=== PATIENT | female | born 1995 | race African-American/Black ===

== ENCOUNTER 2017-03-11 00:29 | Emergency (ER) | payer MEDICAID, OTHER ==
[~2017-03-11] VITALS: Ht 167.6 cm; Wt 81.0 kg
[2017-03-11 00:30] VITALS: BP 152/92; PULSE 102; RESP 20; TEMP 97.8; O2SAT 98
[2017-03-11] MEDS ORDERED: SODIUM CHLORIDE 0.9% FLUSH 10 ML FLUSH IV FLUSH PRN (01:15)
[2017-03-11] MEDS ORDERED: MORPHINE SULFATE 4 MG/ML INJ IV PUSH ONE (01:15)
[2017-03-11] MEDS ORDERED: SODIUM CHLOR 0.9% 1000 ML INJ 1,000 ML IV ONE (01:15)
--- NOTE | 2017-03-11 01:16 | PD ---
HPI Chief Complaint: GI Complaint Time Seen by Provider: 01:01 Travel History International Travel<30 days: No Contact w/Intl Traveler<30days: No Traveled to known affect area: No History of Present Illness HPI Patient is a 22 year old femle presents to the ER with intense pelvic pain associated with bleeding. 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 Patient also states had positive test at home. She has been nauseated without vomiting, no diarrhea, no fever. States earlier it felt like she was going to pass out. PFSH Past Medical History Medical History: Denies Significant Hx Diminished Hearing: No Tetanus Vaccination: Unknown Influenza Vaccination: No ?: Unknown Past Surgical History Surgical History: No Previous Surgery Social History Alcohol Use: Yes (OCC/SOCIAL) Tobacco Use: Yes (BLACK AND MILDS) Substance Use: No Allergies-Medications (Allergen,Severity, Reaction): Coded Allergies: No Known Allergies (Unverified , 03/11/17) Review of Systems Except as stated in HPI: all other systems reviewed are Neg Physical Exam Narrative GENERAL: WD/WN, appears fairly uncomfortable. SKIN: Warm and diaphoretic. HEAD: Atraumatic. Normocephalic. EYES: Pupils equal and round. No scleral icterus. No injection or drainage. ENT: No nasal bleeding or discharge. Mucous membranes pink and moist. NECK: Trachea midline. No JVD. CARDIOVASCULAR: Regular rate and rhythm. RESPIRATORY: No accessory muscle use. Clear to auscultation. Breath sounds equal bilaterally. GASTROINTESTINAL: Abdomen soft, minimally tender in the bilateral lower quadrants, nondistended. Hepatic and splenic margins not palpable. no rebound nor percussive tenderness. : Deferred by patient. MUSCULOSKELETAL: Extremities without clubbing, cyanosis, or edema. No obvious deformities. NEUROLOGICAL: Awake and alert. No obvious cranial nerve deficits. Motor grossly within normal limits. Five out of 5 muscle strength in the arms and legs. Normal speech. PSYCHIATRIC: Appropriate mood and affect; insight and judgment normal. Data Data Last Documented VS Vital Signs Date Time Temp Pulse Resp B/P (MAP) Pulse Ox O2 Delivery O2 Flow Rate FiO2 03/11/17 06:53 03/11/17 01:21 16 100 Room Air 03/11/17 00:30 97.8 102 Orders Orders Urinalysis - C+S If Indicated (03/11/17 00:52) Ed Urine Pregnancytest Poc (03/11/17 00:52) Basic Metabolic Panel (Bmp) (03/11/17 01:08) Beta Hcg (Quant/Titer) (03/11/17 01:08) Complete Blood Count With Diff (03/11/17 01:08) Lactic Acid (03/11/17 01:08) Prothrombin Time / Inr (Pt) (03/11/17 01:08) Act Partial Throm Time (Ptt) (03/11/17 01:08) Iv Access Insert/Monitor (03/11/17 01:08) Ecg Monitoring (03/11/17 01:08) Oximetry (03/11/17 01:08) Sodium Chloride 0.9% Flush (Ns Flush) (03/11/17 01:15) Ed Poc Ultrasound (03/11/17 01:08) Ct Abd/Pel W Iv Contrast(Rout) (03/11/17 ) Morphine Inj (Morphine Inj) (03/11/17 01:15) Sodium Chlor 0.9% 1000 Ml Inj (Ns 1000 M (03/11/17 01:15) Ondansetron Inj (Zofran Inj) (03/11/17 01:20) Us Pelvis Comp W Doppler (03/11/17 02:23) Iohexol 350 Inj (Omnipaque 350 Inj) (03/11/17 04:17) Labs Laboratory Tests Test 03/11/17 01:10 03/11/17 01:20 Urine Color YELLOW Urine Turbidity CLEAR Urine pH 6.5 Urine Specific [place] 1.028 Urine Protein 30 mg/dL Urine Glucose (UA) NEG mg/dL Urine Ketones 150 mg/dL Urine Occult Blood LARGE Urine Nitrite NEG Urine Bilirubin NEG Urine Urobilinogen LESS THAN 2.0 MG/DL Urine Leukocyte Esterase TRACE Urine RBC /hpf Urine WBC 5 /hpf Urine Squamous Epithelial Cells 1 /hpf Urine Hyaline Casts 2 /lpf Urine Mucus FEW /lpf Microscopic Urinalysis Comment CULT NOT INDICATED White Blood Count 7.7 TH/MM3 Red Blood Count 5.34 MIL/MM3 Hemoglobin 12.5 GM/DL Hematocrit 38.8 % Mean Corpuscular Volume 72.7 FL Mean Corpuscular Hemoglobin 23.4 PG Mean Corpuscular Hemoglobin Concent 32.1 % Red Cell Distribution Width 16.6 % Platelet Count 246 TH/MM3 Mean Platelet Volume 8.8 FL Neutrophils (%) (Auto) 70.7 % Lymphocytes (%) (Auto) 24.2 % Monocytes (%) (Auto) 4.5 % Eosinophils (%) (Auto) 0.2 % Basophils (%) (Auto) 0.4 % Neutrophils # (Auto) 5.4 TH/MM3 Lymphocytes # (Auto) 1.9 TH/MM3 Monocytes # (Auto) 0.3 TH/MM3 Eosinophils # (Auto) 0.0 TH/MM3 Basophils # (Auto) 0.0 TH/MM3 CBC Comment DIFF FINAL Differential Comment Prothrombin Time 12.1 SEC Prothromb Time International Ratio 1.1 RATIO Activated Partial Thromboplast Time 22.4 SEC Blood Urea Nitrogen 8 MG/DL Creatinine 0.83 MG/DL Random Glucose 133 MG/DL Calcium Level 9.0 MG/DL Sodium Level 141 MEQ/L Potassium Level 3.4 MEQ/L Chloride Level 110 MEQ/L Carbon Dioxide Level 20.8 MEQ/L Anion Gap 10 MEQ/L Estimat Glomerular Filtration Rate 105 ML/MIN Lactic Acid Level 3.1 mmol/L Human Chorionic Gonadotropin, Quant 4 MIU/ML MDM Medical Decision Making Medical Screen Exam Complete: Yes Emergency Medical Condition: Yes Differential Diagnosis Acute abdomen, ectopic , miscaarriage, anemia, appendicitis, torsion. Narrative Course Last 24 hours Impressions Pelvis Ultrasound 03/11/17 0223 Signed Impressions: Service Date/Time: Saturday, March 11, 2017 02:54 - CONCLUSION: Unremarkable exam. Rubén Grady MD Abdomen/Pelvis CT 03/11/17 0000 Signed Impressions: Service Date/Time: Saturday, March 11, 2017 04:14 - CONCLUSION: Unremarkable exam. Rubén Grady MD Patient roomed in ER, despite her uncomfortable initial appearance and diaphoresis, she has negative workup in ER> Labs reassuring, preg negative. The patient has now been pacing the halls waiting for discharge in [place]. Her repeat abdominal exam was completely benign.. I have counseled the patient on the possibility for PID and recommended a pelvic exam which she declined. Discussed need for follow up with her PCP/[facility] as soon as possible. She was also counseled on return to ED criteria. She is stable for discharge. Diagnosis Primary Impression: Pelvic pain in female Disposition: DISCHARGE HOME Condition: Stable Ced Cam MD Mar 11, 2017 01:16
[2017-03-11] MEDS ORDERED: ONDANSETRON HCL 4 MG/2 ML VIAL ONE (01:20)
[2017-03-11 01:21] VITALS: RESP 16; O2SAT 100
[2017-03-11 01:41] LABS: AUTOMATED NEUTROPHIL # 5.4 TH/MM3 (1.8-7.7); BASOPHIL % 0.4 % (0.0-2.0); EOSINOPHIL % 0.2 % (0.0-4.0); HEMATOCRIT 38.8 % (35.0-46.0); HEMO FLAGS DIFF FINAL; LYMPH % 24.2 % (9.0-44.0); LYMPHOCYTE # 1.9 TH/MM3 (1.0-4.8); MEAN CELL VOLUME 72.7 FL (80.0-100.0); MEAN CORPUSCULAR HEMOGLOBIN 23.4 PG (27.0-34.0); MEAN CORPUSCULAR HGB CONC 32.1 % (32.0-36.0); MONO % 4.5 % (0.0-8.0); NEUT % 70.7 % (16.0-70.0); PLATELET COUNT 246 TH/MM3 (150-450); RED BLOOD COUNT 5.34 MIL/MM3 (4.00-5.30); RED CELL DISTRIBUTION WIDTH 16.6 % (11.6-17.2); WHITE BLOOD COUNT 7.7 TH/MM3 (4.0-11.0)
[2017-03-11 01:44] LABS: BLOOD, URINE LARGE (NEG); COMMENT (UR) CULT NOT INDICATED; CULTURE IF INDICATED CULT NOT INDICATED; GLUCOSE,URINE NEG (NEG); HYALINE CAST, URINE 2 /lpf (RARE); KETONE, URINE 150 mg/dL (NEG); MUCUS URINE FEW /lpf (OCC); NITRITE,URINE NEG (NEG); PH, URINE 6.5 (5.0-8.5); SQUAMOUS EPITHELIAL CELL URINE 1 /hpf (0-5); URINE COLOR YELLOW (YELLW/STRAW)
[2017-03-11 01:50] LABS: APTT (PATIENT) 22.4 SEC (24.3-30.1); INTERNATIONAL NORMALIZED RATIO 1.1 RATIO; PROTHROMBIN TIME - PATIENT 12.1 SEC (9.8-11.6)
[2017-03-11 02:12] LABS: BICARBONATE 20.8 MEQ/L (21.0-32.0); POTASSIUM 3.4 MEQ/L (3.5-5.1)
--- NOTE | 2017-03-11 03:59 | RADRPT ---
EXAM DATE/TIME: 03/11/2017 02:54 [facility] COMPARISON: No previous studies available for comparison. INDICATIONS : Pelvic pain. MEDICAL HISTORY : Pelvic pain. SURGICAL HISTORY : None. ENCOUNTER: Initial ACUITY: 1 day PAIN SCORE: 7/10 LOCATION: Bilateral pelvis MEASUREMENTS: UTERUS: 8.7 x 5.4 x 4.5 cm ENDOMETRIAL STRIPE: 4 mm RIGHT OVARY: 2.9 x 1.4 x 1.5 cm LEFT OVARY: 2.7 x 1.5 x 1.5 cm FINDINGS: UTERUS: The myometrium has homogeneous echotexture without mass. RIGHT OVARY: Ovary contains no mass or significant cystic lesion. LEFT OVARY: Ovary contains no mass or significant cystic lesion. MISCELLANEOUS: No free fluid. CONCLUSION: Unremarkable exam. Rubén Grady MD on March 11, 2017 at 3:57 Board Certified Radiologist. This report was verified electronically.
[2017-03-11] MEDS ORDERED: IOHEXOL 350 MG/ML 10 ML VIAL (for RAD DIAG) IVCONTRAST ONE (04:17)
--- NOTE | 2017-03-11 04:38 | RADRPT ---
EXAM DATE/TIME: 03/11/2017 04:14 [facility] COMPARISON: No previous studies available for comparison. INDICATIONS : Abdominal pain and cramping. IV CONTRAST: 99 cc Omnipaque 350 (iohexol) IV ORAL CONTRAST: No oral contrast ingested. RADIATION DOSE: 5.66 CTDIvol (mGy) MEDICAL HISTORY : None SURGICAL HISTORY : None. ENCOUNTER: Initial ACUITY: 1 day PAIN SCALE: 7/10 LOCATION: Bilateral pelvis TECHNIQUE: Volumetric scanning of the abdomen and pelvis was performed. Using automated exposure control and ad justment of the mA and/or kV according to patient size, radiation dose was kept as low as reasonably achievable to obtain optimal diagnostic quality images. DICOM format image data is available electro nically for review and comparison. FINDINGS: LOWER LUNGS: The visualized lower lungs are clear. LIVER: Homogeneous density without lesion. There is no dilation of the biliary tree. No calcified gallston es. SPLEEN: Normal size without lesion. PANCREAS: Within normal limits. KIDNEYS: Normal in size and shape. There is no mass, stone or hydronephrosis. ADRENAL GLANDS: Within normal limits. VASCULAR: There is no aortic aneurysm. BOWEL/MESENTERY: The stomach, small bowel, and colon demonstrate no acute abnormality. There is no free intraperitone al air or fluid. ABDOMINAL WALL: Within normal limits. RETROPERITONEUM: There is no lymphadenopathy. BLADDER: No wall thickening or mass. REPRODUCTIVE: Within normal limits. INGUINAL: There is no lymphadenopathy or hernia. MUSCULOSKELETAL: Within normal limits for patient age. CONCLUSION: Unremarkable exam. Rubén Grady MD on March 11, 2017 at 4:35 Board Certified Radiologist. This report was verified electronically.
== END 2017-03-11 06:54 | disposition home or self-care (01) ==
LOC: NEPE 00:29
DX: R10.2 Pelvic and perineal pain (principal); R11.0 Nausea; Z72.0 Tobacco use
CPT/HCPCS: 74177; 76856; 80048; 81001; 83605; 84702; 84703; 85025; 85610; 85730; 93975; 96361; 96374; 96375; 99285; J2270; J2405; J7030; Q9967